=== PATIENT | female | born 1945 | race Caucasian/White ===

== ENCOUNTER 2020-01-13 09:20 | Emergency (ER) | payer MEDICARE, OTHER ==
[2020-01-13 09:40] VITALS: BP 149/80
--- NOTE | 2020-01-13 09:54 | UC ---
Respiratory Complaint HPI - HPI Summary HPI Summary: 74 year old female visiting from [place], [place] with h/o asthma presents with complaint of cough x 6 weeks. She is visiting from [place], just finished a 10 day course of Amoxicillin that helped her minimally. She takes Advair HFA, ProAir prn, Singular and Lurdes. Uncertain if she had a fever, no chest pain nor shortness of breath. - History of Current Complaint Chief Complaint: UCRespiratory Stated Complaint: COUGH Time Seen by Provider: 01/13/20 09:23 Hx Obtained From: Patient Onset/Duration: Gradual Onset, Lasting Weeks - 6 Pain Intensity: 0 Associated Signs And Symptoms: Positive: Chills, Wheezing - intermittent. Negative: Dyspnea, Fever, Pleuritic Chest Pain, Hemoptysis, Dizziness - Allergies/Home Medications Allergies/Adverse Reactions: Allergies Allergy/AdvReac Type Severity Reaction Status Date / Time MRI contrast Allergy Itching Uncoded 01/13/20 09:41 Home Medications: Home Medications Albuterol inh POWDER (NF) [Proair Respiclick] 1 puff INH Q6HR PRN 01/13/20 [ History Confirmed 01/13/20] Azithromyxin TOMASZ (NF) [Z-Tomasz (Zithromax) 250 mg tabs #6] 2 tab PO .TODAY, THEN 1 DAILY 5 Days #6 tab 01/13/20 [Rx] Fluticasone HFA 110 mcg(NF) [Flovent HFA 110 mcg(NF)] 1 puff INH BID 01/13/20 [ History Confirmed 01/13/20] Fluticasone HFA 110 mcg(NF) [Flovent HFA 110 mcg(NF)] 1 puff INH BID 01/13/20 [ History Confirmed 01/13/20] Levothyroxine TAB* [Synthroid 25 MCG TAB*] 10 mcg PO 0800 01/13/20 [History Confirmed 01/13/20] Montelukast Sodium TAB* [Singulair 10 MG TAB*] 10 mg PO DAILY 01/13/20 [History Confirmed 01/13/20] metFORMIN* [Glucophage 500 MG TAB *] 500 mg PO DAILY 01/13/20 [History Confirmed 01/13/20] methylPREDNISolone [Medrol] 4 mg PO DAILY #1 tab.ds.pk 01/13/20 [Rx] PMH/Surg Hx/FS Hx/Imm Hx Previously Healthy: Yes Endocrine History: Diabetes, Thyroid Disease Respiratory History: Asthma - Surgical History Surgical History: Yes Surgery Procedure, Year, and Place: Partial thyroidectomy, Left MK - Family History Known Family History: Positive: Non-Contributory - Social History Alcohol Use: None Substance Use Type: None Smoking Status (MU): Never Smoked Tobacco Review of Systems All Other Systems Reviewed And Are Negative: Yes Constitutional: Positive: Chills, Fatigue - due to coughing so much.. Negative : Fever Skin: Positive: Negative Eyes: Positive: Negative ENT: Positive: Sinus Congestion - before taking the Amoxicillin prescribed Respiratory: Positive: Cough. Negative: Shortness Of Breath Cardiovascular: Negative: Palpitations, Chest Pain Gastrointestinal: Positive: Nausea - from excessive coughing. Negative: Abdominal Pain, Vomiting, Diarrhea Genitourinary: Positive: Negative Motor: Positive: Negative Neurovascular: Positive: Negative Musculoskeletal: Positive: Negative Neurological/Mental Status: Positive: Negative Psychological: Positive: Negative Physical Exam Triage Information Reviewed: Yes Appearance: Well-Appearing, No Pain Distress Vital Signs: Initial Vital Signs Temp 98.3 F 01/13/20 09:35 Pulse 92 01/13/20 09:35 Resp 20 01/13/20 09:35 BP 149/80 01/13/20 09:35 Pulse Ox 100 01/13/20 09:35 Vital Signs Reviewed: Yes Eye Exam: Normal ENT: Positive: Pharynx normal, TMs normal Neck: Positive: Supple, Nontender, No Lymphadenopathy Respiratory: Positive: Lungs clear. Negative: Respiratory distress, Crackles, Rhonchi, Stridor, Wheezing Cardiovascular: Positive: RRR, No Murmur Abdomen Description: Positive: Nontender, Soft Musculoskeletal Exam: Normal Neurological Exam: Normal Psychological Exam: Normal Skin Exam: Normal Diagnostics - Radiology No standard instances Radiology Interpretation Completed By: Radiologist Summary of Radiographic Findings: Dumpman: Zana Gonzalez Daniel, ( [id number]) Director Ehs: DWAINE (DWAINE) Report Date: 01/13/2020 10:17: 00 Report Status: Final Start of Report Content Patient Name: MARIVEL MACIAS Medical Record#: [id number] Ordering Physician: Bernard Flor MD Acct.#: [id number] : 1945 Age: 74 Sex: F Location: [facility] Exam Date: 01/13/20 1005 ADM Status: REG ER Order Information: CHEST PA LAT 2 VWS Accession Number: [id number] CPT: 72553 HISTORY: cough x 6 weeks COMPARISONS: None relevant available at the time of dictation. VIEWS: 4: Frontal dual-energy and lateral views of the chest. FINDINGS: CARDIOMEDIASTINAL SILHOUETTE: The cardiomediastinal silhouette is normal. REBECCA: The rebecca are normal. PLEURA: The costophrenic angles are sharp. No pleural abnormalities are noted. LUNG PARENCHYMA: The lungs are clear. ABDOMEN: The upper abdomen is clear. There is no subphrenic gas. BONES AND SOFT TISSUES: No bone or soft tissue abnormalities are noted. OTHER: None. IMPRESSION: NO ACTIVE CARDIOPULMONARY DISEASE. <Electronically signed by Zana Gonzalez MD in OV> 01/13/20 1014 Dictated By: Zana Gonzalez MD Dictated Date/Time: 01/13/20 1014 Transcribed Date/Time: 01/13/20 1014 Copy to: CC:No Primary Care Phys,NOPCP ; Bernard Flor MD Imaging - [facility] Imaging [facility] [address] [place] [id number] ph ([phone] ph ) ph ([phone]) End of Report Content Respiratory Course/Dx - Differential Dx/Diagnosis Provider Diagnosis: Asthma exacerbation, Bronchitis Discharge ED - Sign-Out/Discharge Documenting (check all that apply): Patient Departure All imaging exams completed and their final reports reviewed: Yes - Discharge Plan Condition: Stable Disposition: HOME Prescriptions: Azithromyxin TOMASZ (NF) [Z-Tomasz (Zithromax) 250 mg tabs #6] 2 tab PO .TODAY, THEN 1 DAILY 5 Days #6 tab methylPREDNISolone [Medrol] 4 mg PO DAILY #1 tab.ds.pk Patient Education Materials: Acute Bronchitis (ED) Referrals: No Primary Care Phys,NOPCP [Primary Care Provider] - Additional Instructions: Steroids can increase your blood sugar so monitor your blood sugar closely. Take the antibiotics as prescribed. Follow-up with your Primary Care Physician when you return to [place]. - Billing Disposition and Condition Condition: STABLE Disposition: Home
== END 2020-01-13 10:36 | disposition home or self-care (01) ==
LOC: UCCORT 09:20
DX: J45.901 Unspecified asthma with (acute) exacerbation (principal); E11.9 Type 2 diabetes mellitus without complications; E07.9 Disorder of thyroid, unspecified; J45.909 Unspecified asthma, uncomplicated; Z79.84 Long term (current) use of oral hypoglycemic drugs; Z79.890 Hormone replacement therapy; Z91.041 Radiographic dye allergy status
CPT/HCPCS: 71046; 99202; G0463